=== PATIENT | male | born 1945 | race Caucasian/White ===

== ENCOUNTER → 2016-12-29 | Outpatient (CLI) | payer OTHER | END | disposition home or self-care (01) | LOC: RAD 09:14 | PROVIDERS: ATTEND Radiology Diagnostic Radiology | DX: R05 Cough (principal) | CPT/HCPCS: 71020 ==

== ENCOUNTER 2017-07-25 09:40 | Day surgery (SDC) | payer OTHER ==
[~2017-07-25] VITALS: Ht 190.5 cm; Wt 114.0 kg
[~2017-07-25 09:40] MED LIST: ALBUTEROL INH INH; METF500T4 PO
[2017-07-25] MEDS ORDERED: LACTATED RINGERS 1,000 ML IV SCH (10:03)
[2017-07-25 10:15] VITALS: BP 165/91
[2017-07-25] MEDS ORDERED: PROPOFOL 10 MG/ML, 20ML ONE (11:23)
[2017-07-25] MEDS ORDERED: MIDAZOLAM 1 MG/ML, 2ML ONE (11:23)
[2017-07-25] MEDS ORDERED: FENTANYL PF 250 MCG/5ML ONE (11:23)
[2017-07-25] MEDS ORDERED: BACITRACIN 50,000 UNIT ONE (11:33)
[2017-07-25] MEDS ORDERED: BUPIVACAINE/PF 0.5% ONE (11:33)
[2017-07-25] MEDS ORDERED: LIDOCAINE 1%, 20ML ONE (11:33)
[2017-07-25] MEDS ORDERED: EPINEPHRINE 1 MG/ML, 1ML ONE (11:33)
[2017-07-25] MEDS ORDERED: HYDROmorphone 1 MG/ML, 1ML IV PRN (12:00)
[2017-07-25] MEDS ORDERED: OXYcodone 5 MG/5 ML ORAL.SOL UDC PO PRN (12:00)
[2017-07-25] MEDS ORDERED: PROMETHAZINE 25 MG/ML, 1ML IV PRN (12:00)
[2017-07-25] MEDS ORDERED: ACETAMINOPHEN 325 MG TABLET PO PRN (12:00)
[2017-07-25] MEDS ORDERED: FENTANYL PF 100 MCG/2ML IV PRN (12:00)
[2017-07-25] MEDS ORDERED: LABETALOL 5MG/ML, 20ML IV PRN (12:00)
[2017-07-25] MEDS ORDERED: ONDANSETRON 2MG/ML, 2ML IVPush PRN (12:00)
[2017-07-25] MEDS ORDERED: hydrALAzine 20 MG/ML, 1ML IV PRN (12:00)
[2017-07-25] MEDS ORDERED: MEPERIDINE/PF 25MG/0.5ML IVPush PRN (12:00)
[2017-07-25] MEDS ORDERED: SODIUM CHLORIDE 0.9% PF 10ML ONE (12:19)
[2017-07-25] MEDS ORDERED: CEFAZOLIN 1,000 MG ONE ×2 (12:19)
[2017-07-25] MEDS ORDERED: ONDANSETRON 2MG/ML, 2ML ONE (13:08)
[2017-07-25] MEDS ORDERED: ACETAMINOPHEN 650 MG/20.3 ML UDC ONE (13:18)
[2017-07-25] MEDS ORDERED: OXYcodone 5 MG/5 ML ORAL.SOL UDC ONE (13:18)
== END 2017-07-25 14:55 ==
LOC: OUT 09:40
PROVIDERS: ATTEND Orthopaedic Surgery
DX: G56.02 Carpal tunnel syndrome, left upper limb (principal); G47.33 Obstructive sleep apnea (adult) (pediatric); I10 Essential (primary) hypertension; E11.9 Type 2 diabetes mellitus without complications; J45.909 Unspecified asthma, uncomplicated; M10.9 Gout, unspecified; Z87.39 Personal history of other diseases of the musculoskeletal system and connective tissue; Z87.891 Personal history of nicotine dependence
CPT/HCPCS: 29848; 82962; 93005; J0171; J0690; J2250; J2405; J2704; J3010; J3490

== ENCOUNTER → 2018-04-14 | Outpatient (CLI) | payer OTHER ==
[~2018-04-14] MED LIST changes: +METF500T17 PO; -METF500T4 PO
== END | disposition home or self-care (01) ==
LOC: CFH 07:16 → EDSTATUS 07:45
PROVIDERS: ATTEND Family Medicine
DX: K40.90 Unilateral inguinal hernia, without obstruction or gangrene, not specified as recurrent (principal)
CPT/HCPCS: 76857

== ENCOUNTER → 2018-06-04 | Outpatient (CLI) | payer MEDICARE, OTHER ==
[~2018-06-04] MED LIST changes: +ALBU8.5H8 INH; +ATOR20TA37 PO; +MELO15TA24 PO; +PROP80CA3 PO
[2018-06-04 09:49] LABS: BASOPHILS # (AUTO) 0.06 x10^3/uL (0-0.1); BASOPHILS % (AUTO) 1 % (0-1); EOSINOPHILS # (AUTO) 0.06 x10^3/uL (0-0.4); EOSINOPHILS % (AUTO) 1 % (1-7); LYMPHOCYTES # (AUTO) 1.01 x10^3/uL (1-3.4); LYMPHOCYTES % (AUTO) 16 % (22-44); MD NO; MEAN CORPUSCULAR HEMOGLOBIN 32.1 pg (27.5-34.5); MEAN CORPUSCULAR HGB CONC 34.1 g/dL (33.2-36.2); MEAN CORPUSCULAR VOLUME 94.2 fL (81-97); MEAN PLATELET VOLUME 7.3 fL (7.4-10.4); MONOCYTES # (AUTO) 0.47 x10^3/uL (0.2-0.8); MONOCYTES % (AUTO) 8 % (2-9); NEUTROPHILS # (AUTO) 4.73 x10^3/uL (1.8-6.8); NEUTROPHILS % (AUTO) 75 % (42-75); PLATELET COUNT 203 x10^3/uL (130-400); RED BLOOD COUNT 4.85 x10^6/uL (4.38-5.82)
[2018-06-04 09:57] LABS: ALANINE AMINOTRANSFERASE 98 U/L (12-78); ALBUMIN 3.7 g/dL (3.4-5.0); ANION GAP 9 mmol/L (5-15); CHLORIDE 108 mmol/L (98-107); CREATININE 0.75 mg/dL (0.7-1.3)
[2018-06-04 09:59] LABS: ALKALINE PHOSPHATASE 72 U/L (45-117); BILIRUBIN,TOTAL 0.5 mg/dL (0.2-1.0); TOTAL PROTEIN 7.1 g/dL (6.4-8.2)
== END | disposition home or self-care (01) ==
LOC: STAR 08:43
PROVIDERS: ATTEND Thoracic Surgery (Cardiothoracic Vascular Surgery)
DX: Z01.818 Encounter for other preprocedural examination (principal); Z72.0 Tobacco use
CPT/HCPCS: 36415; 71046; 80053; 85025; 93005

== ENCOUNTER 2018-06-10 06:55 | Day surgery (SDC) | payer OTHER, MEDICARE ==
[~2018-06-10] VITALS: Ht 190.5 cm; Wt 114.2 kg
[~2018-06-10 06:55] MED LIST changes: +BUPIVACAINE/PF-EPI 0.5% 1:200K ONE
[2018-06-10] MEDS ORDERED: LACTATED RINGERS 1,000 ML IV SCH ×2 (07:07→09:27)
[2018-06-10 07:10] VITALS: BP 146/82
[2018-06-10] MEDS ORDERED: TRELEGY INH (07:35)
[2018-06-10] MEDS ORDERED: MIDAZOLAM 1 MG/ML, 2ML ONE (07:46)
[2018-06-10] MEDS ORDERED: FENTANYL PF 250 MCG/5ML ONE (07:47)
[2018-06-10] MEDS ORDERED: PROPOFOL 10 MG/ML, 20ML ONE (07:49)
[2018-06-10] MEDS ORDERED: NEOSTIGMINE 1 MG/ML, 10ML ONE (07:49)
[2018-06-10] MEDS ORDERED: GLYCOPYRROLATE 0.2MG/1ML, 5ML ONE (07:49)
[2018-06-10] MEDS ORDERED: DEXAMETHASONE 4 MG/ML, 1ML ONE (07:49)
[2018-06-10] MEDS ORDERED: ONDANSETRON 2MG/ML, 2ML ONE (07:49)
[2018-06-10] MEDS ORDERED: CEFAZOLIN 1,000 MG ONE (07:49)
[2018-06-10] MEDS ORDERED: ROCURONIUM 10MG/ML,5ML ONE (07:49)
[2018-06-10] MEDS ORDERED: SUCCINYLCHOLINE 20 MG/ML, 10ML ONE (07:49)
[2018-06-10] MEDS ORDERED: EPHEDRINE 50 MG/ML, 1ML ONE (07:58)
[2018-06-10] MEDS ORDERED: ALBUTEROL HFA 90 MCG/SPRAY ONE (08:26)
[2018-06-10] MEDS ORDERED: SUGAMMADEX 200 MG/2 ML IVPush ONE (08:53)
[2018-06-10] MEDS ORDERED: ACETAMINOPHEN 325 MG TABLET PO PRN (09:00)
[2018-06-10] MEDS ORDERED: ONDANSETRON ODT 8 MG PO PRN (09:00)
[2018-06-10] MEDS ORDERED: DIAZEPAM 5 MG/ML, 2ML IVPush PRN (09:00)
[2018-06-10] MEDS ORDERED: hydrALAzine 20 MG/ML, 1ML IV PRN (09:00)
[2018-06-10] MEDS ORDERED: ONDANSETRON 2MG/ML, 2ML IV PRN (09:00)
[2018-06-10] MEDS ORDERED: LABETALOL 5MG/ML, 20ML IV PRN (09:00)
[2018-06-10] MEDS ORDERED: MEPERIDINE/PF 25MG/0.5ML IVPush PRN (09:00)
[2018-06-10] MEDS ORDERED: ALBUTEROL/IPRATROPIUM 2.5MG/0.5MG, 3 ML NPPB PRN (09:00)
[2018-06-10] MEDS ORDERED: HYDROmorphone 2 MG/ML, 1ML IVPush PRN (09:00)
[2018-06-10] MEDS ORDERED: OXYcodone 5 MG/5 ML ORAL.SOL UDC PO PRN (09:00)
[2018-06-10] MEDS ORDERED: PROMETHAZINE 25 MG/ML, 1ML IV PRN (09:00)
[2018-06-10] MEDS ORDERED: morphine SULFATE 10 MG/ML, 1ML IVPush PRN (09:30)
[2018-06-10] MEDS ORDERED: ONDANSETRON 2MG/ML, 2ML IVPush PRN (09:30)
[2018-06-10] MEDS ORDERED: HYDROcodone/APAP 5/325 TABLET PO PRN (09:30)
[2018-06-10] MEDS ORDERED: ALBUTEROL/IPRATROPIUM 2.5MG/0.5MG, 3 ML ONE (09:36)
[2018-06-10] MEDS ORDERED: OXYcodone 5 MG/5 ML ORAL.SOL UDC ONE (09:46)
[2018-06-10] MEDS ORDERED: FENTANYL PF 100 MCG/2ML ONE (09:46)
[2018-06-10] MEDS: FENTANYL PF 100 MCG/2ML IV PRN ×3 (09:47→09:57)
[2018-06-10] MEDS ORDERED: MEPERIDINE/PF 50 MG/ML ONE (10:03)
== END 2018-06-10 14:05 | disposition home or self-care (01) ==
LOC: SDC 06:55 → ORIP 09:27 → UNDOADMOB 09:27 → OUT 14:05
PROVIDERS: ATTEND Thoracic Surgery (Cardiothoracic Vascular Surgery)
DX: K40.20 Bilateral inguinal hernia, without obstruction or gangrene, not specified as recurrent (principal); K42.9 Umbilical hernia without obstruction or gangrene; D17.6 Benign lipomatous neoplasm of spermatic cord; E11.9 Type 2 diabetes mellitus without complications; G47.33 Obstructive sleep apnea (adult) (pediatric); J44.9 Chronic obstructive pulmonary disease, unspecified; Z88.1 Allergy status to other antibiotic agents
CPT/HCPCS: 49585; 49650; 94640; C1727; C1781; J0330; J0690; J1100; J2175; J2250; J2405; J2704; J2710; J3010; J3490; J7120; J7620

== ENCOUNTER 2018-08-04 06:47 | Emergency (ER) | payer OTHER ==
[~2018-08-04] VITALS: Ht 188 cm; Wt 110.0 kg
[~2018-08-04 06:47] MED LIST changes: -BUPIVACAINE/PF-EPI 0.5% 1:200K ONE; +TRELEGY INH
--- NOTE | 2018-08-04 07:00 | NUR ---
Pt to ER for onset of upper ABD/epigastric pain since 0300 & 10 episodes diarrhea yesterday. Pain is 5/10, no nausea. Hx tics, able to self treat with po abx @ home.
[2018-08-04] MEDS ORDERED: SODIUM CHLORIDE FLUSH 10ML SYR IVF ONE (07:30)
[2018-08-04] MEDS ORDERED: CARBAMIDE PEROXIDE EAR DROPS 6.5%, 15ML RIGHT EAR ONE (07:30)
[2018-08-04 07:50] LABS: BASOPHILS # (AUTO) 0.01 x10^3/uL (0-0.1); BASOPHILS % (AUTO) 0 % (0-1); EOSINOPHILS # (AUTO) 0.03 x10^3/uL (0-0.4); EOSINOPHILS % (AUTO) 1 % (1-7); LYMPHOCYTES # (AUTO) 0.44 x10^3/uL (1-3.4); LYMPHOCYTES % (AUTO) 8 % (22-44); MD NO; MEAN CORPUSCULAR HEMOGLOBIN 32.3 pg (27.5-34.5); MEAN CORPUSCULAR HGB CONC 33.3 g/dL (33.2-36.2); MEAN PLATELET VOLUME 7.6 fL (7.4-10.4); MONOCYTES # (AUTO) 0.65 x10^3/uL (0.2-0.8); MONOCYTES % (AUTO) 12 % (2-9); NEUTROPHILS # (AUTO) 4.34 x10^3/uL (1.8-6.8); NEUTROPHILS % (AUTO) 79 % (42-75); PLATELET COUNT 175 x10^3/uL (130-400); RED BLOOD COUNT 5.11 x10^6/uL (4.38-5.82)
[2018-08-04 07:54] LABS: ALANINE AMINOTRANSFERASE 76 U/L (12-78); ALBUMIN 3.4 g/dL (3.4-5.0); ANION GAP 8 mmol/L (5-15); CALCIUM 9.1 mg/dL (8.5-10.1); CHLORIDE 101 mmol/L (98-107)
[2018-08-04 07:56] LABS: ALKALINE PHOSPHATASE 72 U/L (45-117); TOTAL PROTEIN 6.9 g/dL (6.4-8.2)
[2018-08-04 07:58] LABS: MICROSCOPIC NOT IND
--- NOTE | 2018-08-04 08:01 | NUR ---
Pt resting comfortably, no c/o at this time. Declines pain/nausea meds. Sig other @ BS.
[2018-08-04 08:02] VITALS: BP 157/91
[2018-08-04 08:02] LABS: CULTURE INDICATED? NO
[2018-08-04] MEDS ORDERED: CARBAMIDE PEROXIDE EAR DROPS 6.5%, 15ML ONE (08:12)
--- NOTE | 2018-08-04 08:15 | NUR ---
Pt to CT via [facility].
[2018-08-04] MEDS ORDERED: OMNIPAQUE 350 MG/ML, 100ML BOTTLE ONE (08:28)
--- NOTE | 2018-08-04 08:40 | NUR ---
R ear irrigation being performed by EMT for wax impaction.
--- NOTE | 2018-08-04 09:26 | NUR ---
Patient/Caregiver given discharge instructions and they have confirmed that they understand the instructions. Patient ambulatory with steady gait.
== END 2018-08-04 09:27 | disposition home or self-care (01) ==
LOC: ED 09:26
DX: K52.9 Noninfective gastroenteritis and colitis, unspecified (principal); H61.21 Impacted cerumen, right ear
CPT/HCPCS: 36415; 74177; 80053; 81003; 83605; 83690; 85025; 87040; 93005; 99284; Q9967

== ENCOUNTER 2018-11-13 13:36 | Emergency (ER) | payer OTHER ==
[~2018-11-13] VITALS: Ht 190.5 cm; Wt 119.7 kg
--- NOTE | 2018-11-13 14:02 | NUR ---
PT TO ED WITH CP/SOB STARTING ABOUT 30MIN AGO, SUDDEN AND SHARP. HX COPD, ASTHMA, COUGH/COLD RECENTLY. MD AT BEDSIDE
[2018-11-13 14:26] LABS: BASOPHILS # (AUTO) 0.04 x10^3/uL (0-0.1); BASOPHILS % (AUTO) 1 % (0-1); EOSINOPHILS # (AUTO) 0.04 x10^3/uL (0-0.4); EOSINOPHILS % (AUTO) 1 % (1-7); LYMPHOCYTES # (AUTO) 0.44 x10^3/uL (1-3.4); LYMPHOCYTES % (AUTO) 10 % (22-44); MD NO; MEAN CORPUSCULAR HGB CONC 33.6 g/dL (33.2-36.2); MEAN CORPUSCULAR VOLUME 98.3 fL (81-97); MEAN PLATELET VOLUME 7.3 fL (7.4-10.4); MONOCYTES # (AUTO) 0.37 x10^3/uL (0.2-0.8); MONOCYTES % (AUTO) 8 % (2-9); NEUTROPHILS # (AUTO) 3.73 x10^3/uL (1.8-6.8); NEUTROPHILS % (AUTO) 81 % (42-75); PLATELET COUNT 145 x10^3/uL (130-400); RED BLOOD COUNT 4.58 x10^6/uL (4.38-5.82); RED CELL DISTRIBUTION WIDTH 14.6 % (9.4-14.8)
[2018-11-13] MEDS ORDERED: ALBUTEROL/IPRATROPIUM 2.5MG/0.5MG, 3 ML NPPB ONE (14:30)
[2018-11-13 14:38] LABS: ALBUMIN 3.8 g/dL (3.4-5.0); ANION GAP 6 mmol/L (5-15); CALCIUM 8.7 mg/dL (8.5-10.1); CHLORIDE 105 mmol/L (98-107); CREATININE 0.69 mg/dL (0.7-1.3)
[2018-11-13 14:41] LABS: TROPONIN I < 0.015 ng/mL (0.000-0.045)
[2018-11-13] MEDS ORDERED: ALBUTEROL/IPRATROPIUM 2.5MG/0.5MG, 3 ML ONE (14:51)
--- NOTE | 2018-11-13 15:05 | NUR ---
PT RESTING IN GURNEY, BREATHING TX GIVEN, PT MEDICATED PER AUG. VSS ON MONITOR. PT TB ADM, WAITING ON ORDERS
[2018-11-13] MEDS ORDERED: methylPREDNISolone SOD SUCC 125 MG/2 ML ONE (15:28)
[2018-11-13] MEDS ORDERED: methylPREDNISolone SOD SUCC 125 MG/2 ML IVP ONE (15:30)
[2018-11-13] MEDS ORDERED: SODIUM CHLORIDE FLUSH 10ML SYR IVF ONE (15:30)
[2018-11-13] MEDS ORDERED: ALBUTEROL SULFATE 2.5 MG/3 ML NPPB ONE ×2 (15:30→16:30)
--- NOTE | 2018-11-13 16:08 | NUR ---
PT RESTING IN [facility] WITH AT BEDSIDE. VSS ON RA. ADDITIONAL BREATHING TX ORDERED, ADMIT ORDERS IN, AWAITNG BED PLACEMENT
[2018-11-13] MEDS ORDERED: ALBUTEROL SULFATE 2.5 MG/3 ML ONE (16:32)
[2018-11-13 16:42] VITALS: BP 168/87
--- NOTE | 2018-11-13 17:18 | NUR ---
TASK RN: Discharge instructions discussed with patient including when to return to emergency department, verbalizes understanding. Patient dresses independently, ambulates with steady gait.
[2018-11-15] MEDS ORDERED: TOPI25TA32 PO (09:59)
[2018-11-15] MEDS ORDERED: TAMS-11 PO (09:59)
[2018-11-16] MEDS ORDERED: ALBU2.5V NPPB ×2 (11:33)
[2018-11-16] MEDS ORDERED: PRED10TA PO (11:33)
== END 2018-11-13 17:21 | disposition home or self-care (01) ==
LOC: ED 15:49
DX: J45.42 Moderate persistent asthma with status asthmaticus (principal); F17.200 Nicotine dependence, unspecified, uncomplicated
CPT/HCPCS: 36415; 71045; 80048; 82040; 83880; 84484; 85025; 93005; 94640; 96374; 99284; J2930; J7613; J7620

== ENCOUNTER 2019-04-23 04:10 | Inpatient (IN) | payer OTHER, MEDICARE ==
[~2019-04-23] VITALS: Ht 188 cm; Wt 121.0 kg
[~2019-04-23 04:10] MED LIST changes: +ALBU2.5V NPPB; +PRED10TA PO; +TAMS-11 PO; +TOPI25TA32 PO
--- NOTE | 2019-04-23 04:52 | NUR ---
PT IN HOSPITAL GOWN. PT PLACED ON CARDIAC AND VITALS MONITORS. LAB IN NOW TO DRAW PT BLOOD. PT PLACED ON 2L O2 PER N/C DUE TO DESATING TO 86%. CALL LIGHT WITHIN REACH. WILL CONTINUE TO MONITOR.
[2019-04-23] MEDS ORDERED: SODIUM CHLORIDE FLUSH 10ML SYR IVF ONE (05:00)
[2019-04-23] MEDS ORDERED: ASPIRIN 81 MG TABLET CHEW PO ONE (05:00)
[2019-04-23 05:04] LABS: BASOPHILS % (AUTO) 0 % (0-1); EOSINOPHILS # (AUTO) 0.14 x10^3/uL (0-0.4); EOSINOPHILS % (AUTO) 3 % (1-7); LYMPHOCYTES # (AUTO) 0.86 x10^3/uL (1-3.4); LYMPHOCYTES % (AUTO) 16 % (22-44); MD NO; MEAN CORPUSCULAR HEMOGLOBIN 32.7 pg (27.5-34.5); MEAN CORPUSCULAR HGB CONC 33.1 g/dL (33.2-36.2); MEAN CORPUSCULAR VOLUME 98.7 fL (81-97); MEAN PLATELET VOLUME 7.4 fL (7.4-10.4); MONOCYTES # (AUTO) 0.38 x10^3/uL (0.2-0.8); MONOCYTES % (AUTO) 7 % (2-9); NEUTROPHILS # (AUTO) 4.04 x10^3/uL (1.8-6.8); NEUTROPHILS % (AUTO) 75 % (42-75); PLATELET COUNT 166 x10^3/uL (130-400); RED BLOOD COUNT 4.35 x10^6/uL (4.38-5.82); RED CELL DISTRIBUTION WIDTH 14.1 % (9.4-14.8)
[2019-04-23] MEDS ORDERED: ASPIRIN 81 MG TABLET CHEW ONE (05:09)
[2019-04-23 05:16] LABS: ALBUMIN 3.3 g/dL (3.4-5.0); ANION GAP 7 mmol/L (5-15); CALCIUM 7.8 mg/dL (8.5-10.1); CHLORIDE 110 mmol/L (98-107); CREATININE 0.78 mg/dL (0.7-1.3)
[2019-04-23 05:20] LABS: TROPONIN I < 0.015 ng/mL (0.000-0.045)
--- NOTE | 2019-04-23 05:43 | NUR ---
REPEAT EKG DONE. PT RESTING CALMLY IN BED, CALL LIGHT WITHIN REACH. IV STARTED. PT MEDICATED PER EMAR. PT REFUSED PAIN MEDS AT THIS TIME. WILL CONTINUE TO MONITOR. CXR DONE, AWAITING RESULTS.
--- NOTE | 2019-04-23 06:27 | NUR ---
pt to cta
[2019-04-23] MEDS ORDERED: MODA100T22 PO (06:46)
[2019-04-23] MEDS ORDERED: FEXO60TA24 PO (06:46)
[2019-04-23] MEDS ORDERED: FLUT1BLS INH (06:46)
[2019-04-23] MEDS ORDERED: EYE VITAMIN PO (06:47)
[2019-04-23] MEDS ORDERED: OMNIPAQUE 350 MG/ML, 100ML BOTTLE ONE (06:58)
--- NOTE | 2019-04-23 07:13 | NUR ---
RECEIVED REPORT FROM ALYSA MITCHELL RN. PT RESTING ON [facility]. NADN. MARTINEZ. AWARE OF POC OF AWAITING CT RESULTS.
--- NOTE | 2019-04-23 07:17 | NUR ---
PT CHART REVIEWED AND PLACED FOR RECHECK.
--- NOTE | 2019-04-23 07:45 | NUR ---
PT AWARE OF POC FOR ADMIT. PT AGREEABLE.
--- NOTE | 2019-04-23 08:12 | NUR ---
REPORT GIVEN TO WYATT AGARWAL RN. ALL QUESTIONS ANSWERED. AWAITING PT TRANSPORT.
--- NOTE | 2019-04-23 08:40 | NUR ---
[facility] SPIRITISM AT BEDSIDE.
[2019-04-23] MEDS ORDERED: ONDANSETRON 2MG/ML, 2ML IVPush PRN (09:00)
[2019-04-23] MEDS ORDERED: NITROGLYCERIN 0.4 MG BOTTLE (25 TABS) SL PRN (09:00)
[2019-04-23] MEDS ORDERED: hydrALAzine 20 MG/ML, 1ML IVPush PRN (09:00)
[2019-04-23] MEDS ORDERED: ACETAMINOPHEN 325 MG TABLET PO PRN (09:00)
[2019-04-23] MEDS ORDERED: ALBUTEROL/IPRATROPIUM 2.5MG/0.5MG, 3 ML HHN SCH (09:00)
[2019-04-23] MEDS ORDERED: MODAFINIL 100 MG TABLET PO PRN (09:00)
[2019-04-23] MEDS ORDERED: PROMETHAZINE 25 MG/ML, 1ML IM PRN (09:00)
[2019-04-23] MEDS ORDERED: morphine SULFATE 10 MG/ML, 1ML IVPush PRN (09:00)
[2019-04-23] MEDS ORDERED: LABETALOL 5MG/ML, 20ML IVPush PRN (09:00)
[2019-04-23] MEDS ORDERED: ALBUTEROL SULFATE 2.5 MG/3 ML NPPB PRN (10:00)
[2019-04-23 10:36] LABS: TROPONIN I < 0.015 ng/mL (0.000-0.045)
[2019-04-23] MEDS: GUAIFENESIN 200 MG TABLET PO SCH ×3 (11:53→20:13)
[2019-04-23] MEDS: FOLIC ACID 1 MG TABLET PO SCH (11:53)
[2019-04-23] MEDS: MULTIVITAMIN 1 TABLET PO SCH (11:53)
[2019-04-23] MEDS: TOPIRAMATE 25 MG TABLET PO SCH (11:53)
[2019-04-23] MEDS: TAMSULOSIN 0.4 MG CAP.ER.24H PO SCH (11:53)
[2019-04-23] MEDS: THIAMINE 100MG TABLET PO SCH ×2 (11:53→20:13)
[2019-04-23] MEDS: BUDESONIDE 0.5 MG/2 ML INHA INH SCH ×2 (12:15→20:35)
[2019-04-23 12:33] LABS: HEMOGLOBIN A1C 6.6 % (4.2-6.3)
[2019-04-23] MEDS: PROPRANOLOl 80 MG CAP.SA.24H PO SCH (13:23)
[2019-04-23 14:00] VITALS: BP 171/87
[2019-04-23 15:06] LABS: TROPONIN I < 0.015 ng/mL (0.000-0.045)
[2019-04-23] MEDS: ALBUTEROL SULFATE 2.5 MG/3 ML NPPB SCH ×2 (15:38→20:00)
[2019-04-23] MEDS: HEPARIN 5,000 UNITS/ML, 1ML SQ SCH (16:13)
[2019-04-23] MEDS: CETIRIZINE 10 MG TABLET PO SCH (18:01)
[2019-04-23 19:52] VITALS: BP 157/86
[2019-04-23] MEDS: CALCIUM CARBONATE 500 MG TABLET PO SCH (20:13)
[2019-04-23] MEDS ORDERED: ATORVASTATIN 80 MG TABLET PO SCH (21:00)
[2019-04-23] MEDS ORDERED: ALBUTEROL SULFATE 2.5 MG/3 ML NPPB SCH (21:00)
[2019-04-23] MEDS ORDERED: BUDESONIDE 0.5 MG/2 ML INHA INH SCH (21:00)
[2019-04-23 21:40] LABS: TROPONIN I < 0.015 ng/mL (0.000-0.045)
[2019-04-24] MEDS: HEPARIN 5,000 UNITS/ML, 1ML SQ SCH ×2 (00:34→13:15)
[2019-04-24 01:48] VITALS: BP 154/85
[2019-04-24 04:40] LABS: BASOPHILS # (AUTO) 0.07 x10^3/uL (0-0.1); BASOPHILS % (AUTO) 1 % (0-1); EOSINOPHILS # (AUTO) 0.01 x10^3/uL (0-0.4); EOSINOPHILS % (AUTO) 0 % (1-7); LYMPHOCYTES # (AUTO) 0.58 x10^3/uL (1-3.4); LYMPHOCYTES % (AUTO) 10 % (22-44); MD NO; MEAN CORPUSCULAR HEMOGLOBIN 32.9 pg (27.5-34.5); MEAN CORPUSCULAR HGB CONC 33.4 g/dL (33.2-36.2); MEAN CORPUSCULAR VOLUME 98.4 fL (81-97); MEAN PLATELET VOLUME 7.8 fL (7.4-10.4); MONOCYTES # (AUTO) 0.32 x10^3/uL (0.2-0.8); MONOCYTES % (AUTO) 5 % (2-9); NEUTROPHILS # (AUTO) 4.89 x10^3/uL (1.8-6.8); NEUTROPHILS % (AUTO) 83 % (42-75); PLATELET COUNT 164 x10^3/uL (130-400); RED BLOOD COUNT 4.29 x10^6/uL (4.38-5.82); RED CELL DISTRIBUTION WIDTH 14.2 % (9.4-14.8)
[2019-04-24 04:52] LABS: ALBUMIN 3.2 g/dL (3.4-5.0); ANION GAP 3 mmol/L (5-15); CALCIUM 8.6 mg/dL (8.5-10.1); CHLORIDE 105 mmol/L (98-107)
[2019-04-24 04:55] LABS: ALANINE AMINOTRANSFERASE 40 U/L (12-78); ALKALINE PHOSPHATASE 76 U/L (45-117); CHOL/HDL RATIO 2.8; CHOLESTEROL, TOTAL 229 mg/dL (140-239); CREATININE 0.68 mg/dL (0.7-1.3); HDL CHOL % 35 % (26-37); HDL CHOLESTEROL (DIRECT) 81 mg/dL (40-60); LDL CHOLESTEROL,CALCULATED 118 mg/dL (54-169); LDL/HDL RATIO 1.5 (0.5-3.0); TOTAL PROTEIN 6.3 g/dL (6.4-8.2); TRIGLYCERIDES 148 mg/dL (50-200); VLDL CHOLESTEROL 30 mg/dL (0-25)
[2019-04-24] MEDS: GUAIFENESIN 200 MG TABLET PO SCH ×2 (05:28→11:00)
[2019-04-24] MEDS ORDERED: ASPIRIN 325 MG TABLET EC PO SCH (06:00)
[2019-04-24] MEDS: ALBUTEROL SULFATE 2.5 MG/3 ML NPPB SCH ×2 (07:30→11:20)
[2019-04-24] MEDS: BUDESONIDE 0.5 MG/2 ML INHA INH SCH (07:30)
[2019-04-24 07:31] VITALS: BP 158/89
[2019-04-24] MEDS: PROPRANOLOl 80 MG CAP.SA.24H PO SCH (08:54)
[2019-04-24] MEDS: MULTIVITAMIN 1 TABLET PO SCH (08:54)
[2019-04-24] MEDS: FOLIC ACID 1 MG TABLET PO SCH (08:54)
[2019-04-24] MEDS: CETIRIZINE 10 MG TABLET PO SCH (08:54)
[2019-04-24] MEDS: THIAMINE 100MG TABLET PO SCH (08:54)
[2019-04-24] MEDS: TAMSULOSIN 0.4 MG CAP.ER.24H PO SCH (08:54)
[2019-04-24] MEDS: TOPIRAMATE 25 MG TABLET PO SCH (08:54)
[2019-04-24] MEDS: CALCIUM CARBONATE 500 MG TABLET PO SCH (09:00)
[2019-04-24] MEDS ORDERED: REGADENOSON 0.4 MG/5 ML SYRINGE ONE (11:27)
[2019-04-24] MEDS ORDERED: FLU VACC QS2019-20 36MOS UP/PF 0.5 ML IM ONE (12:00)
[2019-04-24] MEDS ORDERED: PRED10TA PO (13:05)
[2019-04-24] MEDS ORDERED: ATOR-2 PO (13:05)
[2019-04-24] MEDS ORDERED: ASPI-650 PO (13:05)
== END 2019-04-24 14:03 | disposition home or self-care (01) | DRG 313 ==
LOC: ED 05:10 → EDIP 07:19 → 5SO 09:16
PROVIDERS: ADMIT Internal Medicine; ATTEND Internal Medicine
DX: R07.89 Other chest pain (principal); S22.31XA Fracture of one rib, right side, initial encounter for closed fracture; J44.1 Chronic obstructive pulmonary disease with (acute) exacerbation; E11.65 Type 2 diabetes mellitus with hyperglycemia; E66.9 Obesity, unspecified; Z68.34 Body mass index [BMI] 34.0-34.9, adult; E78.5 Hyperlipidemia, unspecified; F10.220 Alcohol dependence with intoxication, uncomplicated; Y90.9 Presence of alcohol in blood, level not specified; G25.0 Essential tremor; G47.33 Obstructive sleep apnea (adult) (pediatric); I10 Essential (primary) hypertension; K21.9 Gastro-esophageal reflux disease without esophagitis; N40.0 Benign prostatic hyperplasia without lower urinary tract symptoms; Z66 Do not resuscitate; Z80.1 Family history of malignant neoplasm of trachea, bronchus and lung; Z86.718 Personal history of other venous thrombosis and embolism; Z87.891 Personal history of nicotine dependence; Z88.8 Allergy status to other drugs, medicaments and biological substances; Z96.653 Presence of artificial knee joint, bilateral; X58.XXXA Exposure to other specified factors, initial encounter; Y93.89 Activity, other specified; Y92.89 Other specified places as the place of occurrence of the external cause; Y99.8 Other external cause status
CPT/HCPCS: 36415; 93017; 99285; J7613; J7626; 71045; 71275; 78452; 80048; 80053; 80061; 80307; 82040; 82330; 83036; 83880; 84484; 85025; 85379; 90686; 93005; 93306; 94640; G0378; J1644; J2785; Q9967; A9502; C9898; J7512

== ENCOUNTER 2019-11-17 05:38 | Day surgery (SDC) | payer MEDICARE, OTHER ==
[2019-11-15 15:18] LABS: ALANINE AMINOTRANSFERASE 45 U/L (12-78); ALBUMIN 3.8 g/dL (3.4-5.0); ANION GAP 9 mmol/L (5-15); CALCIUM 9.3 mg/dL (8.5-10.1); CHLORIDE 99 mmol/L (98-107); CREATININE 1.18 mg/dL (0.7-1.3)
[2019-11-15 15:21] LABS: ALKALINE PHOSPHATASE 62 U/L (45-117); BILIRUBIN,TOTAL 0.8 mg/dL (0.2-1.0); TOTAL PROTEIN 7.6 g/dL (6.4-8.2)
[~2019-11-17] VITALS: Ht 188 cm; Wt 113.0 kg
[~2019-11-17 05:38] MED LIST changes: +ASPI-650 PO; +ATOR-2 PO; +BUPR75TA6 PO; +CAND1TAB17 PO; +EYE VITAMIN PO; +FEXO60TA24 PO; +FLUT1BLS INH; +MODA100T22 PO; +TIOT18CA INH
[2019-11-17] MEDS ORDERED: LACTATED RINGERS 1,000 ML IV SCH (06:11)
[2019-11-17 06:13] VITALS: BP 133/82
[2019-11-17] MEDS ORDERED: CHLORHEXIDINE 15 ML UDC ONE (06:14)
[2019-11-17] MEDS ORDERED: CHLORHEXIDINE 15 ML UDC MM ONE (06:30)
[2019-11-17] MEDS ORDERED: MIDAZOLAM 1 MG/ML, 2ML ONE (06:50)
[2019-11-17] MEDS ORDERED: TOPI25TA32 PO (06:58)
[2019-11-17] MEDS ORDERED: FENTANYL PF 100 MCG/2ML IV PRN (07:00)
[2019-11-17] MEDS ORDERED: ONDANSETRON 2MG/ML, 2ML IVPush PRN (07:00)
[2019-11-17] MEDS ORDERED: METHYLENE BLUE 10 MG/ML 10ML ONE (07:35)
[2019-11-17] MEDS ORDERED: SUCCINYLCHOLINE 20 MG/ML, 10ML ONE (07:45)
[2019-11-17] MEDS ORDERED: PROPOFOL 10 MG/ML, 20ML ONE (07:45)
[2019-11-17] MEDS ORDERED: LIDOCAINE-MPF 2% ,5ML ONE (07:45)
== END 2019-11-17 10:20 | disposition home or self-care (01) ==
LOC: OUT 05:38
PROVIDERS: ATTEND Internal Medicine
DX: Z12.11 Encounter for screening for malignant neoplasm of colon (principal); Z11.59 Encounter for screening for other viral diseases; D12.3 Benign neoplasm of transverse colon; D12.0 Benign neoplasm of cecum; D12.2 Benign neoplasm of ascending colon; K29.50 Unspecified chronic gastritis without bleeding; K21.9 Gastro-esophageal reflux disease without esophagitis; K57.30 Diverticulosis of large intestine without perforation or abscess without bleeding; J44.9 Chronic obstructive pulmonary disease, unspecified; E11.40 Type 2 diabetes mellitus with diabetic neuropathy, unspecified; I10 Essential (primary) hypertension; M19.90 Unspecified osteoarthritis, unspecified site; Z88.1 Allergy status to other antibiotic agents; Z88.8 Allergy status to other drugs, medicaments and biological substances; Z72.89 Other problems related to lifestyle; Z79.899 Other long term (current) drug therapy; Z87.891 Personal history of nicotine dependence; Z79.84 Long term (current) use of oral hypoglycemic drugs; Z82.5 Family history of asthma and other chronic lower respiratory diseases; Z98.890 Other specified postprocedural states; Z90.49 Acquired absence of other specified parts of digestive tract; Z79.4 Long term (current) use of insulin
CPT/HCPCS: 36415; 43239; 45380; 45385; 80053; 82962; 88305; 88342; 93005; J0330; J2250; J2704; J7120; Q9968; U0001

== ENCOUNTER → 2020-03-17 | Outpatient (CLI) | payer OTHER | END | disposition home or self-care (01) | LOC: CFH 10:58 | PROVIDERS: ATTEND Family Medicine | DX: D51.0 Vitamin B12 deficiency anemia due to intrinsic factor deficiency (principal); E55.9 Vitamin D deficiency, unspecified; E29.1 Testicular hypofunction; R29.6 Repeated falls; Z87.891 Personal history of nicotine dependence | CPT/HCPCS: 77080 ==